=== PATIENT | male | born 1950 | race Caucasian/White ===

== ENCOUNTER 2020-06-12 15:09 | Emergency (ER) | payer OTHER ==
[~2020-06-12] VITALS: Ht 172.7 cm; Wt 88.9 kg
[2020-06-12] MEDS ORDERED: METOPROLOL TARTRATE 1MG/1ML-5ML VIAL IV ONE (15:30)
[2020-06-12 16:13] LABS: Basophils # (auto) 0.1 10 ^3/uL (0-0.2); Basophils % (auto) 0.7 % (0.0-2.0); Eosinophils # (auto) 0.1 10 ^3/uL (0-0.8); Eosinophils % (auto) 1.2 % (0.0-7.0); Hematocrit 40.4 % (41.0-53.0); Hemoglobin 13.6 g/dL (13.5-17.5); Lymphocytes # (auto) 1.4 10 ^3/uL (0.4-5.4); Lymphocytes % (auto) 13.9 % (10.0-50.0); Mean Corpuscular Hemoglobin 31.5 pg (28.0-32.0); Mean Corpuscular Hgb Conc. 33.8 g/dL (32.0-36.0); Mean Corpuscular Volume 93.1 fL (80.0-100.0); Monocytes # (auto) 0.6 10 ^3/uL (0-1.3); Monocytes % (auto) 6.2 % (0.0-12.0); Neutrophils # (auto) 7.6 10 ^3/uL (1.6-8.6); Nucleated Red Blood Cells % 0.1 %; Platelet Count (auto) 244 10^3/uL (140-450); Red Blood Cells 4.33 10^6/uL (4.5-5.90); Red Cell Distribution Width 13.5 % (11.8-14.3); White Blood Cell 9.7 10^3/uL (4.4-10.8)
[2020-06-12 16:30] LABS: Albumin 3.4 g/dL (3.4-5.0); Calcium 8.4 mg/dL (8.5-10.1); Potassium 3.9 mmol/L (3.5-5.1)
[2020-06-12 16:34] LABS: BUN/Creatinine Ratio 17.2; Bilirubin, Total 0.4 mg/dL (0.2-1.0); Total Protein 7.7 g/dL (6.4-8.2)
[2020-06-12 16:49] LABS: INR 1.09 (0.9-1.15); Partial Thromboplastin Time 26.5 sec (23.0-31.2)
[2020-06-12 17:19] LABS: Urine Bacteria NONE SEEN /hpf (None Seen); Urine Blood Negative /uL (Negative); Urine Hyaline Cast FEW /lpf (0 - 2); Urine Mucus FEW (None Seen); Urine Specific Gravity 1.021 (1.001-1.035); Urine WBC 7 /hpf (0 - 3)
[2020-06-12] MEDS ORDERED: ASPirin 81 mg TAB PO ONE (18:00)
[2020-06-12] MEDS ORDERED: cefTRIAXone 1GM/50ML D5W 50 ML IV ONE (18:00)
[2020-06-12] MEDS ORDERED: ENOXAPARIN SOD 100 MG/1 ML SYRINGE SC ONE (18:00)
[2020-06-12] MEDS ORDERED: SODIUM CHLORIDE 0.9% 500 ML IV ONE (19:30)
[2020-06-12 21:14] VITALS: BP 103/65
== END 2020-06-12 21:41 | disposition short-term general hospital (02) ==
LOC: EDBD 15:09 → ER 15:09
DX: I21.4 Non-ST elevation (NSTEMI) myocardial infarction (principal); I48.91 Unspecified atrial fibrillation; N39.0 Urinary tract infection, site not specified
CPT/HCPCS: 36415; 71045; 80053; 81001; 84484; 85025; 85610; 85730; 93005; 96365; 96372; 96375; 99291; J0696; J1650